=== PATIENT | male | born 1965 | race Caucasian/White ===

== ENCOUNTER 2017-09-05 08:45 | Day surgery (SDC) | payer OTHER ==
[~2017-09-05] VITALS: Ht 175.3 cm; Wt 102.1 kg
[~2017-09-05 08:45] MED LIST: ACET500 PO; CHROMIUM PO; Diethylpropion75 MG PO; METO50ER PO; Sudogest60 MG PO
== END 2017-09-05 13:48 | disposition home or self-care (01) ==
LOC: ORSCMMR 08:45
PROVIDERS: Surgery
PROC: 0JB70ZX Excision of Back Subcutaneous Tissue and Fascia, Open Approach, Diagnostic (ICD-10-PCS; principal; 2017-09-05 10:30)
DX: D21.6 Benign neoplasm of connective and other soft tissue of trunk, unspecified (principal); I10 Essential (primary) hypertension; E66.9 Obesity, unspecified; Z68.33 Body mass index [BMI] 33.0-33.9, adult; Z79.899 Other long term (current) drug therapy; E78.5 Hyperlipidemia, unspecified; Z87.891 Personal history of nicotine dependence
CPT/HCPCS: 88304; J0690; J1100; J2250; J2405; J2710; J3010; J7120

== ENCOUNTER 2017-11-28 10:53 | Day surgery (SDC) | payer OTHER ==
[~2017-11-28] VITALS: Ht 172.7 cm; Wt 98.9 kg
== END 2017-11-28 13:25 | disposition home or self-care (01) ==
LOC: ORSCSDS 10:53
PROVIDERS: Orthopaedic Surgery
PROC: 01N50ZZ Release Median Nerve, Open Approach (ICD-10-PCS; principal; 2017-11-28 12:00)
DX: G56.02 Carpal tunnel syndrome, left upper limb (principal); I10 Essential (primary) hypertension; E78.5 Hyperlipidemia, unspecified; N40.0 Benign prostatic hyperplasia without lower urinary tract symptoms; Z79.899 Other long term (current) drug therapy; Z87.891 Personal history of nicotine dependence
CPT/HCPCS: J0171; J0690; J2250; J3010

== ENCOUNTER 2018-11-13 06:46 | Day surgery (SDC) | payer OTHER ==
[~2018-11-13] VITALS: Ht 172.7 cm; Wt 100.4 kg
[~2018-11-13 06:46] MED LIST changes: +Adipex-P37.5 M1 PO
[2018-11-13] MEDS ORDERED: Excedrin Extra1 EACH (07:03)
[2018-11-13] MEDS ORDERED: ACET325 (07:03)
== END 2018-11-13 09:01 | disposition home or self-care (01) ==
LOC: ORSCSDS 06:46
PROVIDERS: Internal Medicine Gastroenterology
PROC: 0DBN8ZX Excision of Sigmoid Colon, Via Natural or Artificial Opening Endoscopic, Diagnostic (ICD-10-PCS; principal; 2018-11-13 08:00)
PROC: 0DBH8ZX Excision of Cecum, Via Natural or Artificial Opening Endoscopic, Diagnostic (ICD-10-PCS; principal; 2018-11-13 08:00)
DX: Z12.11 Encounter for screening for malignant neoplasm of colon (principal); D12.0 Benign neoplasm of cecum; D12.5 Benign neoplasm of sigmoid colon; I10 Essential (primary) hypertension; Z79.899 Other long term (current) drug therapy
CPT/HCPCS: 88305; J0330; J1980; J2405; J2704; J7120